=== PATIENT | male | born 1955 | race Caucasian/White ===

== ENCOUNTER 2022-02-22 09:45 | Inpatient (IN) | payer OTHER ==
[~2022-02-22] VITALS: Ht 175.3 cm; Wt 90.7 kg
[2022-02-22] MEDS ORDERED: COZAAR100 MG PO (10:34)
[2022-02-22] MEDS ORDERED: ZYLOPRIM100 M1 PO (10:34)
[2022-03-01] MEDS ORDERED: DOXAZOSIN MESYLA2 MG (14:17)
[2022-03-01] MEDS ORDERED: AMLODIPINE BESY10 MG (14:17)
== END 2022-03-02 13:49 | disposition home or self-care (01) | DRG 661 ==
LOC: SURG 02-28 09:00 → SURH 02-28 09:35 → O/R 02-28 09:35 → SURG 02-28 09:45 → SURH 02-28 17:32
PROVIDERS: ADMIT Urology; ATTEND Urology
PROC: BT1FZZZ Fluoroscopy of Left Kidney, Ureter and Bladder (ICD-10-PCS; 2022-02-28)
PROC: 0TC13ZZ Extirpation of Matter from Left Kidney, Percutaneous Approach (ICD-10-PCS; principal; 2022-02-28 11:55)
DX: N20.0 Calculus of kidney (principal); C61 Malignant neoplasm of prostate; Z20.822 Contact with and (suspected) exposure to COVID-19